=== PATIENT | female | born 1955 | race Caucasian/White ===

== ENCOUNTER 2016-06-05 15:26 | Emergency (ER) | payer OTHER ==
[~2016-06-05] VITALS: Ht 170.2 cm; Wt 76.0 kg
[2016-06-05 15:41] VITALS: BP_SYST 150; BP_SYST 163; BP_DIAS 102; BP_DIAS 111; PULSE 89; RESP 16; TEMP 98.6; O2SAT 98
[2016-06-05] MEDS ORDERED: OMEP20TA PO (16:08)
[2016-06-05] MEDS ORDERED: LOMO2.5T PO (16:08)
[2016-06-05] MEDS ORDERED: BUPR100CR PO (16:08)
[2016-06-05 16:15] VITALS: BP 163/81; PULSE 80; RESP 18; O2SAT 98
[2016-06-05] MEDS ORDERED: PROCHLORPERAZINE INJ 10 MG/2 ML VIAL IVP ONE (17:30)
[2016-06-05] MEDS ORDERED: DEXAMETHASONE SOD PHOS 20 MG/5 ML VIAL IV PUSH ONE (17:30)
[2016-06-05] MEDS ORDERED: diphenhydrAMINE HCL 50 MG/ML VIAL IVP ONE (17:30)
[2016-06-05] MEDS ORDERED: KETOROLAC TROMETHAMINE 30 MG/ML (IVP) VIAL IVP ONE (17:30)
[2016-06-05] MEDS ORDERED: SODIUM CHLORIDE 0.9% FLUSH 5 ML FLUSH IVF PRN (17:30)
[2016-06-05] MEDS ORDERED: SODIUM CHLOR 0.9% 1000 ML INJ 1,000 ML IV ONE (17:30)
[2016-06-05 17:51] VITALS: BP 164/82; PULSE 81; RESP 18; O2SAT 97
[2016-06-05 18:35] VITALS: RESP 18
--- NOTE | 2016-06-05 18:41 | PD ---
HPI Chief Complaint: Headache Time Seen by Provider: 17:11 Travel History International Travel<30 days: No Contact w/Intl Traveler<30days: No Traveled to known affect area: No History of Present Illness HPI So 60-year-old woman who presents to the emergency department complaining of headache. States he's been right sided behind her eyes and wraps from behind her face, occasionally wraps around to her side of her face. It's been ongoing for several months now. She'll previous ER visit which she had a CT scan that was reportedly negative. They treated her for sinusitis no change in her symptoms. She is recommended for follow-up with neurology but this has not yet been arranged. She is visiting here from out of town. She's been here for the past 2 weeks, is here for another 2 weeks. She is now having a headache most constantly, though waxes and wanes in severity. She takes Excedrin daily. She' s had some associated nausea, but no other symptoms. No photophobia, no changes in her vision, no numbness tingling weakness. No gait abnormalities or instability. No clumsiness. Came in today because the headache was persistent. History Past Medical History Narrative Medical Anxiety, on Wellbutrin Chronic diarrhea GERD Influenza Vaccination: No Social History Alcohol Use: No Tobacco Use: No Allergies-Medications (Allergen,Severity, Reaction): Coded Allergies: Erythromycin (Verified Allergy, Severe, ABDOMINAL PAIN, 06/05/16) Penicillin (Verified Allergy, Severe, NECK SWELLING, 06/05/16) Reported Meds & Prescriptions Reported Meds & Active Scripts Active Reported Lomotil (Diphenoxylate-Atropine) 2.5-0.025 Mg Tab 1 Tab PO Q6H PRN Omeprazole 20 Mg Tab 20 Mg PO DAILY Wellbutrin SR 12 HR (Bupropion HCl) 100 Mg Tab 100 Mg PO DAILY Review of Systems Except as stated in HPI: all other systems reviewed are Neg Physical Exam Narrative GENERAL: Well-appearing 60-year-old woman, no acute distress. SKIN: Warm and dry. HEAD: Atraumatic. Normocephalic. EYES: Pupils equal and round. No scleral icterus. No injection or drainage. ENT: No nasal bleeding or discharge. Mucous membranes pink and moist. NECK: Trachea midline. No meningismus. CARDIOVASCULAR: Regular rate and rhythm. No murmur appreciated. RESPIRATORY: No accessory muscle use. Clear to auscultation. Breath sounds equal bilaterally. GASTROINTESTINAL: Abdomen soft, non-tender, nondistended. Hepatic and splenic margins not palpable. MUSCULOSKELETAL: No obvious deformities. No edema. NEUROLOGICAL: Awake and alert. No obvious cranial nerve deficits. Motor grossly within normal limits. Normal speech. PSYCHIATRIC: Appropriate mood and affect; insight and judgment normal. Data Data Last Documented VS Vital Signs Date Time Temp Pulse Resp B/P Pulse Ox O2 Delivery O2 Flow Rate FiO2 06/05/16 18:35 18 06/05/16 17:51 81 164/82 97 Room Air 06/05/16 15:41 98.6 Orders Ecg Monitoring (06/05/16 17:30) Iv Access Insert/Monitor (06/05/16 17:30) Oximetry (06/05/16 17:30) Sodium Chloride 0.9% Flush (Ns Flush) (06/05/16 17:30) Ketorolac Inj (Toradol Inj) (06/05/16 17:30) Prochlorperazine Inj (Compazine Inj) (06/05/16 17:30) Diphenhydramine Inj (Benadryl Inj) (06/05/16 17:30) Sodium Chlor 0.9% 1000 Ml Inj (Ns 1000 M (06/05/16 17:30) Dexamethasone Inj (Decadron Inj) (06/05/16 17:30) MDM Medical Decision Making Medical Screen Exam Complete: Yes Emergency Medical Condition: Yes Differential Diagnosis Medication rebound headache, migraine, sinus disease, trigeminal neuralgia, other Narrative Course Medical decision making 60 year-old woman with daily headache, ongoing for months, previous negative imaging, I'll recommend outpatient follow-up with neurology, medication holiday , reassess. Diagnosis Primary Impression: Frequent headaches Additional Instructions: Consider a "drug holiday" were you hold any medications for headache for 7-10 days to prevent medication rebound headaches. Follow-up with her neurologist when return home. Return to the emergency department for any new or worsening symptoms. Med/Other Pt SpecificInfo: No Change to Meds Disposition: 01 DISCHARGE HOME Condition: Stable Fred Srinivasan MD Jun 05, 2016 18:41
[2016-06-05 19:21] VITALS: BP 160/78
== END 2016-06-05 19:30 | disposition home or self-care (01) ==
LOC: PHED 15:26
DX: R51 Headache (principal)
CPT/HCPCS: 96361; 96374; 96375; 99283; J0780; J1100; J1200; J1885; J7030